=== PATIENT | female | born 1980 | race American Indian/Alaskan Native ===

== ENCOUNTER 2018-09-26 10:20 | Emergency (ER) | payer BC, OTHER ==
[2018-09-26 10:46] LABS: Bilirubin,Urine NEG (Negative); Blood,Urine MOD (Negative); Color,Urine Straw (Yellow); Mucus,Urine FEW /HPF; Protein,Urine <15 mg/dL mg/dL (Negative); Urobilinogen,Urine < 2.0 mg/dL (<2.0)
--- NOTE | 2018-09-26 14:09 | Ultrasound Report ---
PROCEDURE: US OB <= 14 WEEKS FETUS TECHNIQUE: Early obstetrical ultrasound. Transabdominal and transvaginal scanning. HISTORY: preg with abd pain/bleeding COMPARISON: None FINDINGS: There is a large gestational sac uterus measuring 2.4 cm mean sac diameter. This corresponds to age o f 7 weeks 3 days. The sac in the size would normally containing a pole or yolk sac but neither visualized. This may be a blighted ovum. The right ovary measures 3.0 x 2.1 x 2.9 cm. Left ovary measures 3.4 x 1.4 x 1.9 cm. There is blood f low to both ovaries. There is no free fluid. IMPRESSION: Empty gestational sac in the uterus. This is suggestive of a blighted ovum. This document is electronically signed by Rut Cramer MD., September 26 2018 02:07:07 PM ET
--- NOTE | 2018-09-26 14:11 | Ultrasound Report ---
PROCEDURE: US OB TRANSVAGINAL TECHNIQUE: Early obstetrical ultrasound. Transabdominal and transvaginal scanning. HISTORY: preg with abd pain/bleeding COMPARISON: None FINDINGS: There is a large gestational sac uterus measuring 2.4 cm mean sac diameter. This corresponds to age o f 7 weeks 3 days. The sac of this size would normally containing a pole or yolk sac but neither visualized. There are some scattered echoes within the sac. This may be a blighted ovum. The right ovary measures 3.0 x 2.1 x 2.9 cm. Left ovary measures 3.4 x 1.4 x 1.9 cm. There is blood f low to both ovaries. There is no free fluid. IMPRESSION: Empty gestational sac in the uterus. This is suggestive of a blighted ovum. This document is electronically signed by Rut Cramer MD., September 26 2018 02:09:41 PM ET
--- NOTE | 2018-09-26 14:28 | Emergency Department Report ---
ED HPI - General Chief complaint: Vaginal Bleeding Stated complaint: VAG BLEED Time Seen by Provider: 09/26/18 10:36 Source: patient Mode of arrival: Ambulatory Limitations: No Limitations - History of Present Illness Initial comments: Patient is a 38-year-old female who is presenting with vaginal bleeding. Patient states she is approximately 11 weeks and started having some spotting 2 days ago. Patient states this spotting has worsened slightly but still less than the bleeding she would have with her menses. Patient has some suprapubic discomfort as well. Patient denies any syncope nausea vomiting diarrhea. Patient states the cramping is a 5 out of 10 in severity. - Related Data Previous Rx's Medication Instructions Recorded Last Taken Type Acetaminophen/Codeine [Tylenol 1 tab PO Q6H PRN #10 tab 09/26/18 Unknown Rx /Codeine # 3 tab] Allergies Allergy/AdvReac Type Severity Reaction Status Date / Time No Known Allergies Allergy Unverified 09/26/18 10:21 ED Review of Systems ROS: Stated complaint: VAG BLEED Other details as noted in HPI Comment: All other systems reviewed and negative ED Past Medical Hx - Past Medical History Previous Medical History?: No - Surgical History Past Surgical History?: No - Social History Smoking Status: Never Smoker Substance Use Type: None - Medications Home Medications: Home Medications Medication Instructions Recorded Confirmed Last Taken Type Acetaminophen/Codeine [Tylenol 1 tab PO Q6H PRN #10 tab 09/26/18 Unknown Rx /Codeine # 3 tab] ED Physical Exam - General Limitations: No Limitations General appearance: alert, in no apparent distress - Head Head exam: Present: atraumatic, normocephalic - Eye Eye exam: Present: normal appearance - ENT ENT exam: Present: mucous membranes moist - Neck Neck exam: Present: normal inspection - Respiratory Respiratory exam: Present: normal lung sounds bilaterally. Absent: respiratory distress, wheezes, rales, rhonchi - Cardiovascular Cardiovascular Exam: Present: regular rate, normal rhythm. Absent: systolic murmur, diastolic murmur, rubs, gallop - GI/Abdominal GI/Abdominal exam: Present: soft, normal bowel sounds. Absent: distended, tenderness, guarding, rebound - Extremities Exam Extremities exam: Present: normal inspection - Back Exam Back exam: Present: normal inspection - Neurological Exam Neurological exam: Present: alert, oriented X3 - Psychiatric Psychiatric exam: Present: normal affect, normal mood - Skin Skin exam: Present: warm, dry, intact, normal color. Absent: rash ED Course Vital Signs 09/26/18 10:24 Temperature 98.6 F Pulse Rate 74 Respiratory 18 Rate O2 Sat by Pulse 100 Oximetry ED Medical Decision Making - Lab Data Lab Results 09/26/18 09/26/18 09/26/18 Range/Units 10:49 10:54 Unknown HCG, Quant 7776 H (0-4) mIU/mL Urine Color Straw (Yellow) Urine Turbidity Clear (Clear) Urine pH 8.0 H (5.0-7.0) Ur Specific Davidson 1.011 (1.003-1.030) Urine Protein <15 mg/dl (Negative) mg/dL Urine Glucose (UA) Neg (Negative) mg/dL Urine Ketones Neg (Negative) mg/dL Urine Blood Mod (Negative) Urine Nitrite Neg (Negative) Urine Bilirubin Neg (Negative) Urine Urobilinogen < 2.0 (<2.0) mg/dL Ur Leukocyte Esterase Neg (Negative) Urine WBC (Auto) 1.0 (0.0-6.0) /HPF Urine RBC (Auto) 4.0 (0.0-6.0) /HPF U Epithel Cells (Auto) < 1.0 (0-13.0) /HPF Urine Mucus Few /HPF Blood Type O POSITIVE - Radiology Data [facility] [address] [place] [address] Ultrasound Report Signed Patient: DUC BINGHAM MR#: [id number] : 1980 Acct:[id number] Age/Sex: 38 / F ADM Date: 09/26/18 Loc: ED Attending Dr: Ordering Physician: SUJEY CHAMBERS MD Date of Service: 09/26/18 Procedure(s): US OB transvaginal Accession Number(s): [id number] cc: SUJEY CHAMBERS MD PROCEDURE: US OB TRANSVAGINAL TECHNIQUE: Early obstetrical ultrasound. Transabdominal and transvaginal scanning. HISTORY: preg with abd pain/bleeding COMPARISON: None FINDINGS: There is a large gestational sac uterus measuring 2.4 cm mean sac diameter. This corresponds to age of 7 weeks 3 days. The sac of this size would normally containing a pole or yolk sac but neither visualized. There are some scattered echoes within the sac. This may be a blighted ovum. The right ovary measures 3.0 x 2.1 x 2.9 cm. Left ovary measures 3.4 x 1.4 x 1.9 cm. There is blood flow to both ovaries. There is no free fluid. IMPRESSION: Empty gestational sac in the uterus. This is suggestive of a blighted ovum. This document is electronically signed by Rut Cramer MD., September 26 2018 02:09:41 PM ET Transcribed By: KIRBY Dictated By: RUT CRAMER MD Electronically Authenticated By: RUT CRAMER MD Signed Date/Time: 09/26/18 1411 DD/ 1216 TD/TT: 09/26/18 1302 - Medical Decision Making Had a conversation with the patient regarding her ultrasound and laboratory studies. Patient likely is a early miscarriage. Patient is outside of the normal range for her Quant for someone who is 12 weeks . Ultrasound also is inconsistent with this just gestational age as the gestational sac is measuring 7-1/2 weeks and also shows no structures within it. Patient be discharged home with rest and will have to have a follow-up within the next week to confirm that she is returning back to normal in regards to her beta Quant. Critical care attestation.: If time is entered above; I have spent that time in minutes in the direct care of this critically ill patient, excluding procedure time. 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
== END 2018-09-26 14:44 | disposition home or self-care (01) ==
LOC: ED 10:20
DX: O20.0 Threatened abortion (principal); Z3A.11 11 weeks gestation of pregnancy
CPT/HCPCS: 36415; 76801; 76817; 81001; 84702; 86900; 86901